=== PATIENT | male | born 1970 | race Caucasian/White ===

== ENCOUNTER → 2019-07-10 15:51 | Outpatient (REF) | payer BC, SELFPAY | LOC: ANHLAB 15:51 | PROVIDERS: Visit Provider Nurse Practitioner | DX: R22.9 Localized swelling, mass and lump, unspecified (principal) | CPT/HCPCS: 88304 ==

== ENCOUNTER 2022-02-18 00:08 | Day surgery (SDC) | payer BC, SELFPAY ==
[2022-02-09 10:55] VITALS: BMI 27.4
--- NOTE | 2022-02-17 17:34 | PM.HPGS ---
History of Present Illness History of Present Illness Consent: Risks, benefits, and alternatives have been discussed and questions answered. Patient agrees to proceed with procedure. Chief complaint: neoplasm screening Narrative: Redd Mcgregor is a 51 year old male referred for colon cancer screening. His last colonoscopy was 10 years ago he Review of Systems Review of Systems: All systems reviewed & are unremarkable except as noted in HPI and below PMFSH Family History Family History Mother Cancer Father Cancer Social History Social History Smoking status: Never smoker Alcohol intake: current Alcohol use details: on occasion Substance use: current Substance use type: marijuana Living arrangements: alone Spiritual care concerns: No Meds Home Medications and Allergies Home Medications Medication Instructions Recorded Confirmed Type No Home Medications 07/10/19 02/18/22 History Allergies Allergy/AdvReac Type Severity Reaction Status Date / Time No Known Allergies Allergy Verified 02/18/22 11:53 Exam Resp: Auscultation: clear to auscultation bilaterally Cardio: Rate: regular rate Rhythm: regular rhythm GI: GI Palp: Yes Soft to palpation and No Tenderness to palpation present (GI) Assessment and Plan Assessment and plan (1) Colon cancer screening: Code(s): Z12.11 - Encounter for screening for malignant neoplasm of colon Status: Acute Assessment and Plan: Colonoscopy with possible biopsy or polypectomy or cautery or injection of substances.
[2022-02-18 11:47] VITALS: BP 127/69; PULSE 73; RESP 16; TEMP 36.1; O2SAT 100; BMI 27.6
[2022-02-18] MEDS: LACTATED RINGERS 1,000 ML 150 ML IV CONT (12:06)
--- NOTE | 2022-02-18 12:24 | P.PNAN_ITS ---
Anes - Initial Pre Proc Eval Procedure: Operation Date: 02/18/22 13:15 Proposed Procedures p Screening Colonoscopy - Jason Vaughn MD Date/Time: 02/18/22 12:24 Surgeon: Jason Vaughn MD Pre Op Diagnosis: neoplasm screening Patient Data Age: 51 Gender: M Height: 1.73 m Weight: 82.5 kg Last Vital Signs Temp 97.0 F L 02/18/22 11:47 Pulse 73 02/18/22 11:47 Resp 16 02/18/22 11:47 BP 127/69 02/18/22 11:47 Pulse Ox 100 02/18/22 11:47 O2 Del Method Room Air 02/18/22 11:47 Allergies Allergy/AdvReac Type Severity Reaction Status Date / Time No Known Allergies Allergy Verified 02/18/22 11:53 Home Medications Medication Instructions Recorded Confirmed Type No Home Medications 07/10/19 02/18/22 History Patient hx anesthesia problems: none Family hx anesthesia problems: none Results Review: All pre-operative results and documents have been reviewed as part of the pre- operative evaluation. [facility] Family History Family History (Updated 07/10/19 @ 15:24 by Meena Minor CMA) Mother Cancer Father Cancer Social History Social History Smoking status: Never smoker Alcohol intake: current Alcohol use details: on occasion Substance use: current Substance use type: marijuana Living arrangements: alone Spiritual care concerns: No Anes - Eval Final PreProcedure Day of Procedure 02/18/22 12:24 Patient weight: overweight Heart: regular rate and rhythm Lungs: clear to auscultation Airway: Mallampati scale class II Neurological: alert and oriented Last oral intake: >/= 8 hours ASA classification: II Emergent: no Anesthetic plan: proceed Anesthesia type and monitoring: general GIVS and standard monitoring Results Review: All pre-operative results and documents have been reviewed as part of the pre- operative evaluation. Informed Consent: The patient's anesthetic plan and its attendant risks and benefits were discussed with the patient/family/POA. Questions were solicited and answers provided to the satisfaction of the patient/family/POA.
[2022-02-18] MEDS: SIMETHICONE ORAL SUSPENSION 20 MG/0.3 ML 30 ML BOTTLE 0.6 ML IRRIGATION (13:31)
[2022-02-18 13:40] VITALS: BP 114/79; PULSE 68; RESP 25; O2SAT 99
[2022-02-18 13:50] VITALS: BP 126/71; PULSE 61; RESP 15; O2SAT 97
[2022-02-18 14:00] VITALS: BP 127/80; PULSE 60; RESP 14; O2SAT 99
== END 2022-02-18 14:21 | disposition home or self-care (01) ==
PROVIDERS: PCP Nurse Practitioner Adult Health; Visit Provider Internal Medicine Gastroenterology
PROC: 0DJD8ZZ Inspection of Lower Intestinal Tract, Via Natural or Artificial Opening Endoscopic (ICD-10-PCS; CPT 45378; principal; 2022-02-18 13:15)
DX: Z12.11 Encounter for screening for malignant neoplasm of colon (principal); K57.30 Diverticulosis of large intestine without perforation or abscess without bleeding; F12.90 Cannabis use, unspecified, uncomplicated
CPT/HCPCS: 45378; J2704; J7120